=== PATIENT | female | born 1980 | race Two or more races ===

== ENCOUNTER 2016-12-14 12:09 | Emergency (ER) | payer SELFPAY ==
[2016-12-14 12:15] VITALS: BP 113/74; PULSE 75; RESP 16; TEMP 98.6; O2SAT 98
--- NOTE | 2016-12-14 13:16 | EDPHY ---
H & P Time Seen by Provider: 12/14/16 13:14 HPI/ROS: Chief complaint. Ear pain HPI. 36-year-old female presents with bilateral ear swelling and itchiness for the past 3 days. Yesterday she noted a little bit of clear liquid discharge from her ears. No upper respiratory symptoms. No trauma or injury. No fever. No new skin products cleared clearing or cleansers noted. No other rash or swelling. ROS Constitutional. no fever/chills, no weakness Eyes. no problems with vision ENT. Bilateral ear swelling Cardiovascular. no chest pain Respiratory. no shortness of breath, no cough Abdominal. no abdominal pain, no nausea/vomiting, no diarrhea . no problems urinating MS. no calf pain/swelling, no neck/back pain, no joint pain Skin. no rash Lymph. no swollen glands Neuro. no headache, no dizziness, no difficulty walking or with speech Past Medical/Surgical History: Healthy Social History: Single, nonsmoker, no alcohol Smoking Status: Never smoked Physical Exam: General Appearance: Alert well-developed female mild distress vital signs are stable. Afebrile Eyes: Pupils equal and round no pallor or injection. ENT, both ears are diffusely swollen and somewhat erythematous. Patient notes that they are itchy. Canals and tympanic membranes are normal. Pharynx without injection. Neck is supple without adenopathy Respiratory: There are no retractions, lungs are clear to auscultation. Cardiovascular: Regular rate and rhythm. Gastrointestinal: Abdomen is soft and nontender, no masses, bowel sounds normal. Neurological: Awake and alert, sensory and motor exams grossly normal. Skin: Warm and dry, no rashes. Musculoskeletal: Neck is supple nontender. Extremities symmetrical, full range of motion. Psychiatric: Patient is oriented X 3, there is no agitation. Constitutional: Initial Vital Signs Temperature (C) 37.0 C 12/14/16 12:12 Heart Rate 75 12/14/16 12:12 Respiratory Rate 16 12/14/16 12:12 Blood Pressure 113/74 12/14/16 12:12 O2 Sat (%) 98 12/14/16 12:12 O2 Delivery Mode Room Air Allergies/Adverse Reactions: No Known Allergies Allergy (Unverified 12/14/16 12:11) Home Medications: Medication Instructions Recorded Amoxicillin/Clavulanate Pot 875 mg PO BID #14 tab 12/14/16 [Augmentin 875 MG TAB (*)] predniSONE 40 mg PO DAILY #8 tab 12/14/16 Medical Decision Making ED Course/Re-evaluation: Patient remained stable. The patient and I discussed treatment plan including criteria for return importance of follow-up and further evaluation. She expresses understanding and agreement Differential Diagnosis: This almost appears to be a contact dermatitis or photosensitivity. The patient otherwise is not ill and has no other findings I am concerned about cellulitis and will treat the patient with antibiotics. But we will also treat the patient with prednisone. She will have close follow-up. Departure - Departure Disposition: Home, Routine, Self-Care Clinical Impression: Cellulitis of ear Qualifiers: Laterality: bilateral Qualified Code(s): H60.13 - Cellulitis of external ear, bilateral Condition: Good Instructions: Cellulitis (ED) Additional Instructions: Augmentin as antibiotic using it twice daily for 1 week. Prednisone 40 mg each day for the next 4 days. Return for worsening symptoms. Recheck in 2 days if not improving Use Augmentin bryce antibiotico 2 veces al jesús por greg semana. Prednisone 40 mg diario por los siguientes 4 geiger. Regrese si los sintomas empeoran. Chequeo en 2 geiger si los sintomas no mejoran. Referrals: [facility] [Outside] - 2-3 days, if not improved Prescriptions: Amoxicillin/Clavulanate Pot [Augmentin 875 MG TAB (*)] 875 mg PO BID #14 tab predniSONE 40 mg PO DAILY #8 tab Print Language: [place]
== END 2016-12-14 13:45 | disposition home or self-care (01) ==
DX: H60.13 Cellulitis of external ear, bilateral (principal)